=== PATIENT | male | born 1960 | race Caucasian/White ===

== ENCOUNTER 2017-06-19 04:22 | Inpatient (IN) | payer OTHER ==
[~2017-06-19] VITALS: Ht 177.8 cm; Wt 81.1 kg
[~2017-06-19 04:22] MED LIST: DIPH50 PO; NALT50 PO; NIFE1TAB85 PO; PROZ20CA11 PO
[2017-06-19 04:23] VITALS: BP 156/82; PULSE 59; RESP 18; TEMP 98; O2SAT 99
[2017-06-19] MEDS ORDERED: SIMV20TA PO (04:30)
--- NOTE | 2017-06-19 04:56 | PD ---
HPI Chief Complaint: Abdominal Pain Time Seen by Provider: 04:38 Travel History International Travel<30 days: No Contact w/Intl Traveler<30days: No Traveled to known affect area: No History of Present Illness HPI 56yo M presents to the ED with c/o epigastric pain since 1:30am today. Said it is burning and now more in the right upper abdomen. Denies any fever, chest pain, sob, n/v, diarrhea. PFSH Past Medical History Hx Anticoagulant Therapy: No Depression: Yes Heart Rhythm Problems: No Cardiac Catheterization: No Cardiovascular Problems: No High Cholesterol: Yes Chemotherapy: No Congestive Heart Failure: No Cerebrovascular Accident: No Diabetes: No Diminished Hearing: No GERD: Yes Genitourinary: No Hypertension: No Musculoskeletal: No Neurologic: Yes Reproductive: No Respiratory: No Immunizations Current: Yes Myocardial Infarction: No Renal Failure: Yes Tetanus Vaccination: < 5 Years Influenza Vaccination: No Past Surgical History Coronary Artery Bypass Graft: No Hysterectomy: No Joint Replacement: Yes (left knee) Tonsillectomy: Yes Other Surgery: Yes Family History Family Myocardial Infarction: Yes (GRANDPARENTS) Social History Alcohol Use: No Tobacco Use: No Substance Use: No Allergies-Medications (Allergen,Severity, Reaction): Coded Allergies: No Known Allergies (Verified Allergy, Unknown, 06/19/17) Reported Meds & Prescriptions Reported Meds & Active Scripts Active Reported Simvastatin 20 Mg Tab 20 Mg PO DAILY Review of Systems Except as stated in HPI: all other systems reviewed are Neg Physical Exam Narrative GENERAL: 56yo M in mild distress. SKIN: Focused skin assessment warm/dry. HEAD: Atraumatic. Normocephalic. EYES: Pupils equal and round. No scleral icterus. No injection or drainage. ENT: No nasal bleeding or discharge. Mucous membranes pink and moist. NECK: Trachea midline. No JVD. CARDIOVASCULAR: Regular rate and rhythm. No murmur appreciated. RESPIRATORY: No accessory muscle use. Clear to auscultation. Breath sounds equal bilaterally. GASTROINTESTINAL: Abdomen soft, +TTP RUQ. +Gold's sign. No rebound tenderness or guarding. MUSCULOSKELETAL: No obvious deformities. No clubbing. No cyanosis. No edema. NEUROLOGICAL: Awake and alert. No obvious cranial nerve deficits. Motor grossly within normal limits. Normal speech. PSYCHIATRIC: Appropriate mood and affect; insight and judgment normal. Data Data Last Documented VS Vital Signs Date Time Temp Pulse Resp B/P (MAP) Pulse Ox O2 Delivery O2 Flow Rate FiO2 06/19/17 06:25 57 18 124/83 (97) 97 Room Air 06/19/17 04:23 98.0 Orders Orders Us Abdomen Gallbladder (06/19/17 ) Complete Blood Count With Diff (06/19/17 04:50) Basic Metabolic Panel (Bmp) (06/19/17 04:50) Hepatic Functional Panel (06/19/17 04:50) Lipase (06/19/17 04:50) Morphine Inj (Morphine Inj) (06/19/17 06:15) Ondansetron Inj (Zofran Inj) (06/19/17 06:26) Admit Order (Ed Use Only) (06/19/17 06:27) Consult Gastroenterology (06/19/17 ) Ondansetron Inj (Zofran Inj) (06/19/17 06:30) Labs Laboratory Tests Test 06/19/17 04:57 White Blood Count 11.5 TH/MM3 Red Blood Count 4.94 MIL/MM3 Hemoglobin 15.0 GM/DL Hematocrit 44.1 % Mean Corpuscular Volume 89.3 FL Mean Corpuscular Hemoglobin 30.3 PG Mean Corpuscular Hemoglobin Concent 33.9 % Red Cell Distribution Width 13.4 % Platelet Count 147 TH/MM3 Mean Platelet Volume 9.0 FL Neutrophils (%) (Auto) 77.1 % Lymphocytes (%) (Auto) 12.8 % Monocytes (%) (Auto) 6.0 % Eosinophils (%) (Auto) 3.7 % Basophils (%) (Auto) 0.4 % Neutrophils # (Auto) 8.8 TH/MM3 Lymphocytes # (Auto) 1.5 TH/MM3 Monocytes # (Auto) 0.7 TH/MM3 Eosinophils # (Auto) 0.4 TH/MM3 Basophils # (Auto) 0.1 TH/MM3 CBC Comment DIFF FINAL Differential Comment Blood Urea Nitrogen 13 MG/DL Creatinine 0.92 MG/DL Random Glucose 107 MG/DL Total Protein 7.3 GM/DL Albumin 3.8 GM/DL Calcium Level 8.8 MG/DL Alkaline Phosphatase 53 U/L Aspartate Amino Transf (AST/SGOT) 33 U/L Alanine Aminotransferase (ALT/SGPT) 38 U/L Total Bilirubin 0.5 MG/DL Direct Bilirubin 0.1 MG/DL Sodium Level 140 MEQ/L Potassium Level 4.1 MEQ/L Chloride Level 103 MEQ/L Carbon Dioxide Level 30.8 MEQ/L Anion Gap 6 MEQ/L Estimat Glomerular Filtration Rate 85 ML/MIN Indirect Bilirubin 0.4 MG/DL Lipase 238 U/L [facility] Medical Decision Making Medical Screen Exam Complete: Yes Emergency Medical Condition: Yes Differential Diagnosis Acute cholecystitis vs. pancreatitis vs. hepatitis vs. gastritis vs. peptic ulcer disease Narrative Course 56yo M with epigastric pain that is now more right upper abdomen since 1:30am today. Denies any history of gallstones. Labs reviewed, unremarkable. US gallbladder showed small amount of gallbladder sludge and 1 gallstone. Prominent CBD up to 10mm. Recommend ERCP/MRCP if clinically warranted. Pt given morphine and zofran. Will admit for MRCP/ERCP to further evaluate. Discussed with Dr. Casper and accepted to her service. Diagnosis Primary Impression: Common bile duct dilatation Admitting Information Admitting Physician Requests: Bettina Edge DO Jun 19, 2017 04:56
[2017-06-19 05:37] LABS: AUTOMATED NEUTROPHIL # 8.8 TH/MM3 (1.8-7.7); BASOPHIL # 0.1 TH/MM3 (0-0.2); BASOPHIL % 0.4 % (0.0-2.0); EOSINOPHIL # 0.4 TH/MM3 (0-0.4); EOSINOPHIL % 3.7 % (0.0-4.0); HEMATOCRIT 44.1 % (39.0-51.0); LYMPH % 12.8 % (9.0-44.0); LYMPHOCYTE # 1.5 TH/MM3 (1.0-4.8); MEAN CELL VOLUME 89.3 FL (80.0-100.0); MEAN CORPUSCULAR HEMOGLOBIN 30.3 PG (27.0-34.0); MEAN CORPUSCULAR HGB CONC 33.9 % (32.0-36.0); MONOCYTE # 0.7 TH/MM3 (0-0.9); NEUT % 77.1 % (16.0-70.0); PLATELET COUNT 147 TH/MM3 (150-450); RED BLOOD COUNT 4.94 MIL/MM3 (4.50-5.90); RED CELL DISTRIBUTION WIDTH 13.4 % (11.6-17.2); WHITE BLOOD COUNT 11.5 TH/MM3 (4.0-11.0)
--- NOTE | 2017-06-19 05:44 | RADRPT ---
EXAM DATE/TIME: 06/19/2017 04:52 [facility] COMPARISON: CT ABDOMEN & PELVIS W CONTRAST, February 07, 2015, 17:36. INDICATIONS : Right upper quadrant pain. MEDICAL HISTORY : Right upper quadrant pain. SURGICAL HISTORY : None. ENCOUNTER: Initial ACUITY: 1 day PAIN SCORE: 3/10 LOCATION: Right upper quadrant MEASUREMENTS: LIVER: 16.4 cm length COMMON DUCT: 10 mm RIGHT KIDNEY: 8.6 x 5.3 x 5.3 cm FINDINGS: LIVER: Normal echotexture without focal lesion or ductal dilatation. COMMON DUCT: No intraluminal mass or stone visualized. GALLBLADDER: Small amount gallbladder sludge with a single 9 x 5 x 8mm gallstone. No significant gallbladder wall thickening or pericholecystic fluid. No sonographic Gold's sign. PANCREAS: The visualized portions are within normal limits. RIGHT KIDNEY: No evidence of hydronephrosis, stone, or mass. CONCLUSION: 1. Small amount of gallbladder sludge with single subcentimeter gallstone. No sonographic evidence fo r acute cholecystitis. 2. Prominent common bile duct measuring up to 10 mm. No intrahepatic ductal dilatation. No focal intr aluminal stone in the central common bile duct. Consider MRCP/ERCP examination for further evaluation as clinically warranted. Amando Lopez MD on June 19, 2017 at 5:39 Board Certified Radiologist. This report was verified electronically.
[2017-06-19 05:49] LABS: ALBUMIN 3.8 GM/DL (3.4-5.0); BICARBONATE 30.8 MEQ/L (21.0-32.0); CALCIUM 8.8 MG/DL (8.5-10.1); CREATININE 0.92 MG/DL (0.60-1.30); DIRECT BILIRUBIN ADULT 0.1 MG/DL (0.0-0.2)
[2017-06-19 05:51] LABS: INDIRECT BILIRUBIN 0.4 MG/DL (0.0-0.8); TOTAL BILIRUBIN ADULT 0.5 MG/DL (0.2-1.0); TOTAL PROTEIN 7.3 GM/DL (6.4-8.2)
[2017-06-19] MEDS ORDERED: MORPHINE SULFATE 2 MG/ML INJ IV PUSH ONE (06:15)
[2017-06-19 06:25] VITALS: BP 124/83; PULSE 57; RESP 18; O2SAT 97
[2017-06-19] MEDS ORDERED: ONDANSETRON HCL 4 MG/2 ML VIAL ONE (06:26)
[2017-06-19] MEDS ORDERED: ONDANSETRON HCL 4 MG/2 ML VIAL IV PUSH ONE (06:30)
[2017-06-19] MEDS ORDERED: SENNOSIDES 8.6 MG TAB PO PRN (07:00)
[2017-06-19] MEDS ORDERED: SODIUM CHLORIDE 0.9% FLUSH 10 ML FLUSH IV FLUSH PRN (07:00)
[2017-06-19] MEDS ORDERED: MAGNESIUM HYDROXIDE SUSP 30 ML CUP PO PRN (07:00)
[2017-06-19] MEDS ORDERED: ACETAMINOPHEN 325 MG TAB PO PRN (07:00)
[2017-06-19] MEDS ORDERED: ONDANSETRON HCL 4 MG/2 ML VIAL IVP PRN (07:00)
[2017-06-19] MEDS ORDERED: NALOXONE HCL 0.4 MG/ML AMP IV PUSH PRN (07:00)
--- NOTE | 2017-06-19 07:47 | HHI.HP ---
[facility] Service [facility] Primary Care Physician [facility] Admission Diagnosis Dilated common bile duct Diagnoses: (1) Common bile duct dilatation Diagnosis: Principal Chief Complaint: abdominal pain Travel History International Travel<30 Days: No Contact w/Intl Traveler <30 Da: No Traveled to Known Affected Are: No History of Present Illness patient is a 56 y/o male with history of dyslipidemia who presented to ER with abdominal pain. he says that the pain started last night. the pain was initially in epigastric area but later shifted to RUQ. pain was severe in intensity. it wasn't associated with nausea, vomiting, fever or change in bowel movement. he says that he had similar type of pain the other night but it went away. this time the pain persisted till he came to ER. now he says that the pain is better after he received some pain medication. Review of Systems Constitutional: DENIES: Fever, Weight loss, Chills, Night Sweats Eyes: DENIES: Blurred vision, Diplopia, Vision loss, Double Vision Ears, nose, mouth, throat: DENIES: Tinnitus, Vertigo, Throat pain, Epistaxis Respiratory: DENIES: Apneas, Cough, Snoring, Wheezing, Hemoptysis, Sputum production, Shortness of breath Cardiovascular: DENIES: Chest pain, Palpitations, Syncope, Dyspnea on Exertion , PND, Lower Extremity Edema, Orthopnea, Claudication Gastrointestinal: COMPLAINS OF: Abdominal pain, DENIES: Black stools, Bloody stools, Constipation, Diarrhea, Nausea, Vomiting, Difficulty Swallowing, Anorexia Genitourinary: DENIES: Urinary frequency, Urgency, Hematuria, Dysuria Musculoskeletal: DENIES: Joint pain, Muscle aches, Stiffness, Joint Swelling Integumentary: DENIES: Rash Neurologic: DENIES: Abnormal gait, Headache, Localized weakness, Paresthesias, Seizures, Speech Problems, Tremor, Poor Balance Psychiatric: DENIES: Anxiety, Confusion, Mood changes, Depression, Hallucinations, Agitation, Suicidal Ideation, Homicidal Ideation, Delusions Past Family Social History Past Medical History dyslipidemia Past Surgical History knee replacement Reported Medications simvastatin Allergies: Coded Allergies: No Known Allergies (Verified Allergy, Unknown, 1/20/18) Active Ordered Medications Inpatient Medications Acetaminophen (Tylenol) 650 mg Q4H PRN PO TEMP > 100.4; Start 06/19/17 at 07:00 Magnesium Hydroxide (Milk Of Suresh Liq) 30 ml Q12H PRN PO Mild constipation ; Start 06/19/17 at 07:00 Morphine Sulfate (Morphine Inj) 2 mg Q3H PRN IV PUSH pain 1-10; Start 06/19/17 at 07:15 Naloxone HCl (Narcan Inj) 0.4 mg UNSCH PRN IV PUSH SEE LABEL COMMENTS; Start at 07:00 Ondansetron HCl (Zofran Inj) 4 mg Q6H PRN IVP NAUSEA OR VOMITING; Start at 07:00 Pantoprazole Sodium (Protonix Inj) 40 mg Q24H IV PUSH ; Start 06/19/17 at 07:15 Sennosides (Senokot) 17.2 mg Q12H PRN PO Moderate constipation; Start 06/19/17 at 07:00 Sodium Chloride (NS Flush) 2 ml BID IV FLUSH ; Start 06/19/17 at 09:00 Family History reviewed and not significant. Social History no smoking or drinking. Physical Exam Vital Signs Vital Signs Date Time Temp Pulse Resp B/P (MAP) Pulse Ox O2 Delivery O2 Flow Rate FiO2 06/19/17 07:00 18 06/19/17 06:25 57 18 124/83 (97) 97 Room Air 06/19/17 04:23 98.0 59 18 156/82 (106) 99 Room Air Physical Exam GENERAL: This is a well-nourished, well-developed patient, in no apparent distress. SKIN: No rashes, ecchymoses or lesions. Cool and dry. HEAD: Atraumatic. Normocephalic. No temporal or scalp tenderness. EYES: Pupils equal round and reactive. Extraocular motions intact. No scleral icterus. No injection or drainage. ENT: Nose without bleeding, purulent drainage or septal hematoma. Throat without erythema, tonsillar hypertrophy or exudate. Uvula midline. Airway patent. NECK: Trachea midline. No JVD or lymphadenopathy. Supple, nontender, no meningeal signs. CARDIOVASCULAR: Regular rate and rhythm without murmurs, gallops, or rubs. RESPIRATORY: Clear to auscultation. Breath sounds equal bilaterally. No wheezes , rales, or rhonchi. GASTROINTESTINAL: Abdomen soft, non-tender, nondistended. No hepato-splenomegaly , or palpable masses. No guarding. MUSCULOSKELETAL: Extremities without clubbing, cyanosis, or edema. No joint tenderness, effusion, or edema noted. No calf tenderness. Negative Homans sign bilaterally. NEUROLOGICAL: Awake and alert. Cranial nerves II through XII intact. Motor and sensory grossly within normal limits. Five out of 5 muscle strength in all muscle groups. Normal speech. Laboratory Laboratory Tests Test 06/19/17 04:57 White Blood Count 11.5 Red Blood Count 4.94 Hemoglobin 15.0 Hematocrit 44.1 Mean Corpuscular Volume 89.3 Mean Corpuscular Hemoglobin 30.3 Mean Corpuscular Hemoglobin Concent 33.9 Red Cell Distribution Width 13.4 Platelet Count 147 Mean Platelet Volume 9.0 Neutrophils (%) (Auto) 77.1 Lymphocytes (%) (Auto) 12.8 Monocytes (%) (Auto) 6.0 Eosinophils (%) (Auto) 3.7 Basophils (%) (Auto) 0.4 Neutrophils # (Auto) 8.8 Lymphocytes # (Auto) 1.5 Monocytes # (Auto) 0.7 Eosinophils # (Auto) 0.4 Basophils # (Auto) 0.1 CBC Comment DIFF FINAL Differential Comment Blood Urea Nitrogen 13 Creatinine 0.92 Random Glucose 107 Total Protein 7.3 Albumin 3.8 Calcium Level 8.8 Alkaline Phosphatase 53 Aspartate Amino Transf (AST/SGOT) 33 Alanine Aminotransferase (ALT/SGPT) 38 Total Bilirubin 0.5 Direct Bilirubin 0.1 Sodium Level 140 Potassium Level 4.1 Chloride Level 103 Carbon Dioxide Level 30.8 Anion Gap 6 Estimat Glomerular Filtration Rate 85 Indirect Bilirubin 0.4 Lipase 238 Result Diagram: 06/19/17 0457 06/19/17 0457 Imaging Last Impressions Gall Bladder Ultrasound 06/19/17 0000 Signed Impressions: Service Date/Time: Monday, June 19, 2017 04:52 - CONCLUSION: 1. Small amount of gallbladder sludge with single subcentimeter gallstone. No sonographic evidence for acute cholecystitis. 2. Prominent common bile duct measuring up to 10 mm. No intrahepatic ductal dilatation. No focal intraluminal stone in the central common bile duct. Consider MRCP/ERCP examination for further evaluation as clinically warranted. MD Wei Will VTE Risk Assessment Caprinannita VTE Risk Assessment: No/Low Risk (score <= 1) Caprini Risk Assessment Model Point Value = 1 Point Value = 2 Point Value = 3 Point Value = 5 Age 41-60 Minor surgery BMI > 25 kg/m2 Swollen legs Varicose veins or History of unexplained or recurrent spontaneous Oral contraceptives or hormone replacement Sepsis (< 1 month) Serious lung disease, including pneumonia (< 1 month) Abnormal pulmonary function Acute myocardial infarction Congestive heart failure (< 1 month) History of inflammatory bowel disease Medical patient at bed rest Age 61-74 Arthroscopic surgery Major open surgery (> 45 min) Laparoscopic surgery (> 45 min) Malignancy Confined to bed (> 72 hours) Immobilizing plaster cast Central venous access Age >= 75 History of VTE Family history of VTE Factor V Leiden Prothrombin [id number] Lupus anticoagulant Anticardiolipin antibodies Elevated serum homocysteine Heparin-induced thrombocytopenia Other congenital or acquired thrombophilia Stroke (< 1 month) Elective arthroplasty Hip, pelvis, or leg fracture Acute spinal cord injury (< 1 month) Prophylaxis Regimen Total Risk Factor Score Risk Level Prophylaxis Regimen 0-1 Low Early ambulation 2 Moderate Order ONE of the following: *Sequential Compression Device (SCD) *Heparin 5000 units SQ BID 3-4 Higher Order ONE of the following medications: *Heparin 5000 units SQ TID *Enoxaparin/Lovenox 40 mg SQ daily (WT < 150 kg, CrCl > 30 mL/min) *Enoxaparin/Lovenox 30 mg SQ daily (WT < 150 kg, CrCl > 10-29 mL/min) *Enoxaparin/Lovenox 30 mg SQ BID (WT < 150 kg, CrCl > 30 mL/min) AND/OR *Sequential Compression Device (SCD) 5 or more Highest Order ONE of the following medications: *Heparin 5000 units SQ TID (Preferred with Epidurals) *Enoxaparin/Lovenox 40 mg SQ daily (WT < 150 kg, CrCl > 30 mL/min) *Enoxaparin/Lovenox 30 mg SQ daily (WT < 150 kg, CrCl > 10-29 mL/min) *Enoxaparin/Lovenox 30 mg SQ BID (WT < 150 kg, CrCl > 30 mL/min) AND *Sequential Compression Device (SCD) Assessment and Plan Assessment and Plan A/P - RUQ pain with prominent common bile duct on sonogram keep NPO for now and continue with IV fluid and pain management- GI consulted. -dyslipidemia; hold statin for now. Discussed Condition With the patient. Physician Certification 2 Midnight Certification Type: Admission for Inpatient Services Order for Inpatient Services The services are ordered in accordance with Medicare regulations or non- Medicare payer requirements, as applicable. In the case of services not specified as inpatient-only, they are appropriately provided as inpatient services in accordance with the 2-midnight benchmark. Estimated LOS (days): 2 days is the estimated time the patient will need to remain in the hospital, assuming treatment plan goals are met and no additional complications. Post-Hospital Plan: Home Marcus Palma MD Jun 19, 2017 07:47
[2017-06-19 08:30] VITALS: BP 134/85; PULSE 60; RESP 18; O2SAT 98
[2017-06-19] MEDS: MORPHINE SULFATE 2 MG/ML INJ IV PUSH PRN ×4 (10:50→23:55)
[2017-06-19] MEDS: SODIUM CHLORIDE 0.9% FLUSH 10 ML FLUSH IV FLUSH SCH ×2 (10:54→19:32)
[2017-06-19] MEDS: PANTOPRAZOLE SODIUM 40 MG VIAL IV PUSH SCH (11:05)
[2017-06-19] MEDS: SODIUM CHLOR 0.45% 1000 ML INJ 1,000 ML IV SCH ×3 (11:06→23:56)
--- NOTE | 2017-06-19 11:06 | PD.CONS ---
HPI History of Present Illness patient is a 56 y/o male with history of dyslipidemia who presented to ER with abdominal pain. The pain started last night. Initially, he thought this was indigestion so he took 2 Tums and tried to go to sleep but the pain continues and that prompted the ED visit. The pain was initially in epigastric area but later shifted to RUQ. pain was severe in intensity, felt like a knot and at some point, he wasn't sure if the pain was in chest or abd. Denies associated with nausea, vomiting, fever or change in bowel movement. He denies previous hx of this. Denies alcohol intake. US showed small amount of gallbladder sludge with single gallstone, no evidence for acute cholecystitis, prominent CBD measuring up to 10 mm, no stone in CBD seen. Liver enzymes wnl. CBC with slight elevation in WBC. Patient tells me, his brother and father had gallbladder issues and ended up with cholecystectomy (Elsa Martin) PFSH Past Medical History dyslipidemia Past Surgical History knee replacement (Elsa Martin) Coded Allergies: No Known Allergies (Verified Allergy, Unknown, 06/19/17) Medications Current Medications Medications (Trade) Dose Ordered Sig/Jamar Route Start Time Stop Time Status Last Admin Sodium Chloride 1,000 ml @ 75 mls/hr [id number] IV 06/19/17 06:58 (NS Flush) 2 ml UNSCH PRN IV FLUSH 06/19/17 07:00 (NS Flush) 2 ml BID IV FLUSH 06/19/17 09:00 (Tylenol) 650 mg Q4H PRN PO 06/19/17 07:00 (Zofran Inj) 4 mg Q6H PRN IVP 06/19/17 07:00 (Narcan Inj) 0.4 mg UNSCH PRN IV PUSH 06/19/17 07:00 (Milk Of Magnesia Liq) 30 ml Q12H PRN PO 06/19/17 07:00 (Senokot) 17.2 mg Q12H PRN PO 06/19/17 07:00 (Morphine Inj) 2 mg Q3H PRN IV PUSH 06/19/17 07:15 (Protonix Inj) 40 mg Q24H IV PUSH 06/19/17 07:15 Family History his brother and father had gallbladder issues and ended up with cholecystectomy Social History no smoking or drinking. (Elsa Martin) Review of Systems Constitutional: DENIES: Weight loss Endocrine: DENIES: Polyuria Eyes: DENIES: Double Vision Ears, nose, mouth, throat: DENIES: Hoarseness Respiratory: DENIES: Shortness of breath Cardiovascular: DENIES: Lower Extremity Edema Gastrointestinal: COMPLAINS OF: Abdominal pain, DENIES: Black stools, Bloody stools, Constipation, Diarrhea, Nausea, Vomiting, Difficulty Swallowing, Anorexia, Odynophagia, Swelling of Abdomen, Heartburn, Hematemesis Genitourinary: DENIES: Hematuria Musculoskeletal: DENIES: Neck pain Integumentary: DENIES: Jaundice Hematologic/lymphatic: DENIES: Bruising Immunologic/allergic: DENIES: Eczema Neurologic: DENIES: Abnormal gait Psychiatric: DENIES: Anxiety (Elsa Martin) GI Exam Vitals I&O Vital Signs Date Time Temp Pulse Resp B/P (MAP) Pulse Ox O2 Delivery O2 Flow Rate FiO2 06/19/17 09:09 06/19/17 08:30 60 18 134/85 (101) 98 Room Air 06/19/17 07:00 18 06/19/17 06:25 57 18 124/83 (97) 97 Room Air 06/19/17 04:23 98.0 59 18 156/82 (106) 99 Room Air Imaging Last Impressions Gall Bladder Ultrasound 06/19/17 0000 Signed Impressions: Service Date/Time: Monday, June 19, 2017 04:52 - CONCLUSION: 1. Small amount of gallbladder sludge with single subcentimeter gallstone. No sonographic evidence for acute cholecystitis. 2. Prominent common bile duct measuring up to 10 mm. No intrahepatic ductal dilatation. No focal intraluminal stone in the central common bile duct. Consider MRCP/ERCP examination for further evaluation as clinically warranted. Amando Lopez MD Laboratory Test 06/19/17 04:57 White Blood Count 11.5 TH/MM3 Red Blood Count 4.94 MIL/MM3 Hemoglobin 15.0 GM/DL Hematocrit 44.1 % Mean Corpuscular Volume 89.3 FL Mean Corpuscular Hemoglobin 30.3 PG Mean Corpuscular Hemoglobin Concent 33.9 % Red Cell Distribution Width 13.4 % Platelet Count 147 TH/MM3 Mean Platelet Volume 9.0 FL Neutrophils (%) (Auto) 77.1 % Lymphocytes (%) (Auto) 12.8 % Monocytes (%) (Auto) 6.0 % Eosinophils (%) (Auto) 3.7 % Basophils (%) (Auto) 0.4 % Neutrophils # (Auto) 8.8 TH/MM3 Lymphocytes # (Auto) 1.5 TH/MM3 Monocytes # (Auto) 0.7 TH/MM3 Eosinophils # (Auto) 0.4 TH/MM3 Basophils # (Auto) 0.1 TH/MM3 CBC Comment DIFF FINAL Differential Comment Blood Urea Nitrogen 13 MG/DL Creatinine 0.92 MG/DL Random Glucose 107 MG/DL Total Protein 7.3 GM/DL Albumin 3.8 GM/DL Calcium Level 8.8 MG/DL Alkaline Phosphatase 53 U/L Aspartate Amino Transf (AST/SGOT) 33 U/L Alanine Aminotransferase (ALT/SGPT) 38 U/L Total Bilirubin 0.5 MG/DL Direct Bilirubin 0.1 MG/DL Sodium Level 140 MEQ/L Potassium Level 4.1 MEQ/L Chloride Level 103 MEQ/L Carbon Dioxide Level 30.8 MEQ/L Anion Gap 6 MEQ/L Estimat Glomerular Filtration Rate 85 ML/MIN Indirect Bilirubin 0.4 MG/DL Lipase 238 U/L Physical Examination HEENT: normocephalic; atraumatic; no jaundice. NECK: Neck is supple, no JVD, no lymphadenopathy. CHEST: Chest is clear to auscultation and percussion. CARDIAC: Regular rate and rhythm with no murmur gallop or rubs. ABDOMEN: Soft, nondistended, RUQ tenderness, no hepatosplenomegaly; bowel sounds are present in all four quadrants. EXTREMITIES: No clubbing, cyanosis, or edema. SKIN: Normal; no rash; no jaundice. WOODWORKER HELPER: No focal deficits; alert and oriented times three. (Amawi,Khawla SATIN FINISHER) Assessment and Plan Plan - Dilated CBD/RUQ pain X one day- US showed small amount of gallbladder sludge with single gallstone, no evidence for acute cholecystitis, prominent CBD measuring up to 10 mm, no stone in CBD seen. Liver enzymes wnl. CBC with slight elevation in WBC. Denies associated with nausea, vomiting, fever or change in bowel movement. He denies previous hx of this. Denies alcohol intake. Possible choledocholithiasis - Hyperlipidemia per attending. Plan: - Regular diet - MRCP - Pending results above, pt might need ERCP - Supportive care - Patient seen and examined by Dr. Perera and myself and this note is written on his behalf. (Elsa Martin) Physician Comments Patient seen and examined Agree with above Continue with current supportive care Monitor labs MRCP negative Further recommendations shall depend on his hospital course (Erwin Perera MD) Elsa Martin Jun 19, 2017 11:06 Erwin Perera MD Jun 19, 2017 21:39
[2017-06-19 12:00] VITALS: BP 112/76; PULSE 54; RESP 18; TEMP 96.5; O2SAT 98
--- NOTE | 2017-06-19 15:56 | RADRPT ---
EXAM DATE/TIME: 06/19/2017 15:09 [facility] COMPARISON: US ABDOMEN - GALLBLADDER, June 19, 2017, 4:52. CT BRAIN W/O CONTRAST, January 24, 2015, 21:28. INDICATIONS : Abdominal pain. MEDICAL HISTORY : Hypercholesterolemia. SURGICAL HISTORY : Bilateral hand surgery, knee surgery. ENCOUNTER: Initial ACUITY: 1 day PAIN SCORE: 5/10 LOCATION: Right upper quadrant TECHNIQUE: Multiplanar, multisequence magnetic resonance imaging of the abdomen was performed. High-resolution 3D dataset was utilized to reconstruct maximum-intensity projection (MIP) images. FINDINGS: INTRAHEPATIC BILE DUCTS: Within normal limits. No significant anatomical variant is present. EXTRAHEPATIC BILE DUCTS: The common bile duct measures 6 mm. There is some narrowing at the distal common bile duct could be a small stricture. No stone or filling defect is identified. GALLBLADDER: Tiny stones without wall thickening, or pericholecystic fluid. LIVER: Normal size and signal intensity. No concerning liver lesion is identified on this non-contrast exam. PANCREAS: The main pancreatic duct is normal in size. There is no significant anatomical variant. Signal inte nsity is within normal limits. No mass is visualized on this non-contrast exam. OTHER: The remaining visualized structures demonstrate no acute abnormality on this non-contrast exam. CONCLUSION: 1. Common bile duct is normal in caliber measuring 6 mm. 2. There does appear to be some narrowing and possible stricture at the distal common bile duct. 3. Minimal cholelithiasis. Ja Benitez MD on June 19, 2017 at 15:50 Board Certified Radiologist. This report was verified electronically.
[2017-06-19 16:00] VITALS: BP 121/87; PULSE 60; RESP 18; TEMP 96.8; O2SAT 98
[2017-06-19 20:00] VITALS: BP 119/88; PULSE 81; RESP 18; TEMP 96.4; O2SAT 97
[2017-06-20] VITALS: BP 114/75; PULSE 76; RESP 16; TEMP 96.9; O2SAT 97
[2017-06-20] MEDS: PANTOPRAZOLE SODIUM 40 MG VIAL IV PUSH SCH (05:29)
[2017-06-20 06:42] LABS: BASOPHIL # 0.1 TH/MM3 (0-0.2); BASOPHIL % 0.9 % (0.0-2.0); EOSINOPHIL # 0.4 TH/MM3 (0-0.4); EOSINOPHIL % 6.3 % (0.0-4.0); HEMATOCRIT 44.7 % (39.0-51.0); HEMOGLOBIN 15.1 GM/DL (13.0-17.0); LYMPH % 27.9 % (9.0-44.0); MEAN CELL VOLUME 90.4 FL (80.0-100.0); MEAN CORPUSCULAR HEMOGLOBIN 30.5 PG (27.0-34.0); MEAN CORPUSCULAR HGB CONC 33.8 % (32.0-36.0); MEAN PLATELET VOLUME 9.8 FL (7.0-11.0); MONO % 7.8 % (0.0-8.0); MONOCYTE # 0.6 TH/MM3 (0-0.9); NEUT % 57.1 % (16.0-70.0); PLATELET COUNT 157 TH/MM3 (150-450); RED BLOOD COUNT 4.94 MIL/MM3 (4.50-5.90); RED CELL DISTRIBUTION WIDTH 13.7 % (11.6-17.2); WHITE BLOOD COUNT 7.1 TH/MM3 (4.0-11.0)
[2017-06-20 06:46] LABS: ALBUMIN 3.5 GM/DL (3.4-5.0); AST (GOT) 17 U/L (15-37); BICARBONATE 28.1 MEQ/L (21.0-32.0); BLOOD UREA NITROGEN 11 MG/DL (7-18); CALCIUM 8.7 MG/DL (8.5-10.1); CHLORIDE 105 MEQ/L (98-107); CREATININE 0.91 MG/DL (0.60-1.30); GLOMERULAR FILTRATION RATE 86 ML/MIN (>89); GLUCOSE,RANDOM 85 MG/DL (74-106); SODIUM (NA) 139 MEQ/L (136-145)
[2017-06-20 06:47] LABS: ALT (GPT) 28 U/L (12-78)
[2017-06-20 06:50] LABS: ALKALINE PHOSPHATASE 53 U/L (45-117); TOTAL BILIRUBIN ADULT 0.6 MG/DL (0.2-1.0); TOTAL PROTEIN 6.6 GM/DL (6.4-8.2)
[2017-06-20 08:00] VITALS: BP 107/69; PULSE 60; RESP 17; TEMP 96.9; O2SAT 95
[2017-06-20] MEDS: SODIUM CHLORIDE 0.9% FLUSH 10 ML FLUSH IV FLUSH SCH (08:48)
[2017-06-20] MEDS: SODIUM CHLOR 0.45% 1000 ML INJ 1,000 ML IV SCH (08:48)
--- NOTE | 2017-06-20 11:00 | HHI.PR ---
Subjective Remarks in no acute distress. abdominal pain has resolved. no nausea or vomiting. no new complaints. Objective Vitals Vital Signs Date Time Temp Pulse Resp B/P (MAP) Pulse Ox O2 Delivery O2 Flow Rate FiO2 06/20/17 08:00 96.9 60 17 107/69 (82) 95 06/20/17 00:00 96.9 76 16 114/75 (88) 97 06/19/17 20:00 96.4 81 18 119/88 (98) 97 06/19/17 16:00 96.8 60 18 121/87 (98) 98 06/19/17 12:00 96.5 54 18 112/76 (88) 98 I/O 06/19/17 06/19/17 06/19/17 06/20/17 06/20/17 06/20/17 07:00 15:00 23:00 07:00 15:00 23:00 Intake Total 480 ml 1919 ml Balance 480 ml 1919 ml Intake Oral 480 ml 480 ml IV Total 1439 ml # Voids 3 1 1 # Bowel Movements 0 Result Diagram: 06/20/17 0503 06/20/17 0503 Imaging Last Impressions Gall Bladder Ultrasound 06/19/17 0000 Signed Impressions: Service Date/Time: Monday, June 19, 2017 04:52 - CONCLUSION: 1. Small amount of gallbladder sludge with single subcentimeter gallstone. No sonographic evidence for acute cholecystitis. 2. Prominent common bile duct measuring up to 10 mm. No intrahepatic ductal dilatation. No focal intraluminal stone in the central common bile duct. Consider MRCP/ERCP examination for further evaluation as clinically warranted. Amando Lopez MD Cholangiopancreatography MRI 06/19/17 0000 Signed Impressions: Service Date/Time: Monday, June 19, 2017 15:09 - CONCLUSION: 1. Common bile duct is normal in caliber measuring 6 mm. 2. There does appear to be some narrowing and possible stricture at the distal common bile duct. 3. Minimal cholelithiasis. Ja Benitez MD Objective Remarks GENERAL: This is a well-nourished, well-developed patient, in no apparent distress. CARDIOVASCULAR: Regular rate and regular rhythm without murmurs, gallops, or rubs. RESPIRATORY: Clear to auscultation. Breath sounds equal bilaterally. No wheezes , rales, or rhonchi. GASTROINTESTINAL: Abdomen soft, non-tender, nondistended. Normal, active bowel sounds MUSCULOSKELETAL: Extremities without clubbing, cyanosis, or edema. NEURO: Alert & Oriented x4 to person, place, time, situation. Moves all ext x4 Medications and IVs Inpatient Medications Acetaminophen (Tylenol) 650 mg Q4H PRN PO TEMP > 100.4; Start 06/19/17 at 07:00 Magnesium Hydroxide (Milk Of Magnesia Liq) 30 ml Q12H PRN PO Mild constipation ; Start 06/19/17 at 07:00 Morphine Sulfate (Morphine Inj) 2 mg Q3H PRN IV PUSH pain 1-10 Last administered on 06/19/17at 23:55; Start 06/19/17 at 07:15 Naloxone HCl (Narcan Inj) 0.4 mg UNSCH PRN IV PUSH SEE LABEL COMMENTS; Start at 07:00 Ondansetron HCl (Zofran Inj) 4 mg Q6H PRN IVP NAUSEA OR VOMITING Last administered on 06/19/17at 15:50; Start 06/19/17 at 07:00 Pantoprazole Sodium (Protonix Inj) 40 mg Q24H IV PUSH Last administered on 06/20at 05:29; Start 06/19/17 at 07:15 Sennosides (Senokot) 17.2 mg Q12H PRN PO Moderate constipation; Start 06/19/17 at 07:00 Sodium Chloride (NS Flush) 2 ml BID IV FLUSH Last administered on 06/19/17at 10: 54; Start 06/19/17 at 09:00 A/P Problem List: (1) Common bile duct dilatation ICD Code: K83.8 - Other specified diseases of biliary tract Status: Acute Assessment and Plan - RUQ pain with prominent common bile duct on sonogram abdominal pain has almost resolved. MRCP with some narrowing and stricture of the distal common bile duct. awaiting GI f/u and recommendations. -dyslipidemia;resume statin upon discharge. Discharge Planning dc home when cleared by GI. d/w the patient. Marcus Palma MD Jun 20, 2017 11:00
--- NOTE | 2017-06-20 11:41 | HHI.GIFU ---
Subjective Remarks Patient is resting in bed, no more abd pain, tolerated diet okay, no nausea or vomiting, would like to go home. (Elsa Martin) Objective Vitals I&O Vital Signs Date Time Temp Pulse Resp B/P (MAP) Pulse Ox O2 Delivery O2 Flow Rate FiO2 06/20/17 08:00 96.9 60 17 107/69 (82) 95 06/20/17 00:00 96.9 76 16 114/75 (88) 97 06/19/17 20:00 96.4 81 18 119/88 (98) 97 06/19/17 16:00 96.8 60 18 121/87 (98) 98 06/19/17 12:00 96.5 54 18 112/76 (88) 98 I/O 06/19/17 06/19/17 06/19/17 06/20/17 06/20/17 06/20/17 07:00 15:00 23:00 07:00 15:00 23:00 Intake Total 480 ml 1919 ml Balance 480 ml 1919 ml Intake Oral 480 ml 480 ml IV Total 1439 ml # Voids 3 1 1 # Bowel Movements 0 Laboratory Laboratory Tests Test 06/20/17 05:03 White Blood Count 7.1 Red Blood Count 4.94 Hemoglobin 15.1 Hematocrit 44.7 Mean Corpuscular Volume 90.4 Mean Corpuscular Hemoglobin 30.5 Mean Corpuscular Hemoglobin Concent 33.8 Red Cell Distribution Width 13.7 Platelet Count 157 Mean Platelet Volume 9.8 Neutrophils (%) (Auto) 57.1 Lymphocytes (%) (Auto) 27.9 Monocytes (%) (Auto) 7.8 Eosinophils (%) (Auto) 6.3 Basophils (%) (Auto) 0.9 Neutrophils # (Auto) 4.0 Lymphocytes # (Auto) 2.0 Monocytes # (Auto) 0.6 Eosinophils # (Auto) 0.4 Basophils # (Auto) 0.1 CBC Comment DIFF FINAL Differential Comment Blood Urea Nitrogen 11 Creatinine 0.91 Random Glucose 85 Total Protein 6.6 Albumin 3.5 Calcium Level 8.7 Alkaline Phosphatase 53 Aspartate Amino Transf (AST/SGOT) 17 Alanine Aminotransferase (ALT/SGPT) 28 Total Bilirubin 0.6 Sodium Level 139 Potassium Level 3.9 Chloride Level 105 Carbon Dioxide Level 28.1 Anion Gap 6 Estimat Glomerular Filtration Rate 86 Imaging Last Impressions Gall Bladder Ultrasound 06/19/17 0000 Signed Impressions: Service Date/Time: Monday, June 19, 2017 04:52 - CONCLUSION: 1. Small amount of gallbladder sludge with single subcentimeter gallstone. No sonographic evidence for acute cholecystitis. 2. Prominent common bile duct measuring up to 10 mm. No intrahepatic ductal dilatation. No focal intraluminal stone in the central common bile duct. Consider MRCP/ERCP examination for further evaluation as clinically warranted. Amando Lopez MD Cholangiopancreatography MRI 06/19/17 0000 Signed Impressions: Service Date/Time: Monday, June 19, 2017 15:09 - CONCLUSION: 1. Common bile duct is normal in caliber measuring 6 mm. 2. There does appear to be some narrowing and possible stricture at the distal common bile duct. 3. Minimal cholelithiasis. Ja Benitez MD Physical Exam HEENT: normocephalic; atraumatic; no jaundice. CHEST: Chest is clear to auscultation and percussion. CARDIAC: Regular rate and rhythm with no murmur gallop or rubs. ABDOMEN: Soft, nondistended, nontender; no hepatosplenomegaly; bowel sounds are present in all four quadrants. EXTREMITIES: No clubbing, cyanosis, or edema. SKIN: Normal; no rash; no jaundice. SENIOR ANIMATOR: No focal deficits; alert and oriented times three. (Elsa Martin) Assessment and Plan Plan - Dilated CBD/RUQ pain X one day- Pain have resolved today. US showed small amount of gallbladder sludge with single gallstone, no evidence for acute cholecystitis, prominent CBD measuring up to 10 mm, no stone in CBD seen. MRCP negative except some stricture in distal CBD.Liver enzymes wnl. CBC with slight elevation in WBC. Denies associated with nausea, vomiting, fever or change in bowel movement. He denies previous hx of this. Denies alcohol intake. - Hyperlipidemia per attending. Plan: - Regular diet - Okay to Dc home from GI stand point - F/u with GI as an OP - Consider EUS as an OP - Supportive care - Patient seen and examined by Dr. Perera and myself and this note is written on his behalf. (Elsa Martin) Physician Comments Patient seen and examined Agree with above Continue with current supportive care Monitor labs Okay for DC (Erwin Perera MD) Elsa Martin Jun 20, 2017 11:41 Erwin Perera MD Jun 21, 2017 18:39
[2017-06-20 12:00] VITALS: BP 121/79; PULSE 57; RESP 17; TEMP 97.1; O2SAT 97
== END 2017-06-20 13:46 | disposition home or self-care (01) | DRG 446 ==
LOC: NEPE 04:22 → NEDA 06:29 → N06B 08:20
PROVIDERS: ADMIT Internal Medicine; ATTEND Internal Medicine
DX: K80.20 Calculus of gallbladder without cholecystitis without obstruction (principal); F32.9 Major depressive disorder, single episode, unspecified; E78.5 Hyperlipidemia, unspecified; K21.9 Gastro-esophageal reflux disease without esophagitis; Z96.652 Presence of left artificial knee joint
CPT/HCPCS: 74181; 76377; 76705; 80048; 80053; 80076; 83690; 85025; 99285; C9113; J2270; J2405